=== PATIENT | male | born 1975 | race Caucasian/White ===

== ENCOUNTER 2020-02-25 15:41 | Inpatient (IN) ==
[2020-02-25] MEDS ORDERED: AZITHROMYCIN INJ 500 MG in SODIUM CHLORIDE 0.9% 250 ML IV STA (16:00)
[2020-02-25] MEDS ORDERED: methylPREDNISolone SOD SUC 125 MG/2 ML VIAL IV STA (16:00)
[2020-02-25] MEDS ORDERED: ALBUTEROL NEB SOLN 5 MG/ML 20 ML/BOTTLE CONT NEB SCH (16:00)
[2020-02-25] MEDS ORDERED: KETOROLAC 30 MG/1 ML VIAL IV STA (16:00)
[2020-02-25 16:44] LABS: Basophils % 0.2 % (0.0-0.8); Eosinophils # 0.3 10*3/uL (0.0-0.87); Eosinophils % 2.5 % (0.00-10.9); Hematocrit 42.3 VOL% (42.0-52.0); Immature Granulocytes % 0.8 %; Immature Granulocytes Absolute 0.09 #; Lymphocytes # 2.5 10*3/uL (1.4-4.0); Lymphocytes % 21.2 % (21.2-54.2); Mean Corpuscular HGB Conc 30.7 GM/DL (32-36); Mean Corpuscular Volume 83.9 FL (87-102); Monocytes % 11.1 % (1.7-12.7); Neutrophils % 64.2 % (38.7-73.9); Platelet Count 266 T/CUMM (130-400); Red Blood Count 5.04 MC/CUMM (3.8-5.5); Red Cell Distribution Width 15.6 % (9.3-17.3); White Blood Count 11.6 T/CUMM (4-12)
[2020-02-25 16:55] LABS: PT Patient Result 10.3 SECS (9.8-11.9); Partial Thromboplastin Time 28.3 SECS (23.9-33.8)
[2020-02-25 17:06] LABS: Alanine Aminotransferase 27 U/L (16-61); Albumin 3.1 G/DL (3.4-5.0); Alkaline Phosphatase 79 U/L (45-117); Aspartate Amino Transferase 14 U/L (0-37); Bilirubin,Total < 0.39 MG/DL (0.2-1.0); Blood Urea Nitrogen 9 MG/DL (7-18); Calcium 8.7 MG/DL (8.5-10.1); Estimated Glom Filtration Rate 134 ML/MIN; Glucose 148 MG/DL (74-106); Osmolality,Calculated 269.2 MOS/KG (273-304); Total Protein 7.2 G/DL (6.4-8.3); Troponin I < 0.015 NG/ML (0.00-0.045)
[2020-02-25] MEDS ORDERED: FUROSEMIDE 40 MG/4 ML VIAL IV STA (17:26)
[2020-02-25] MEDS ORDERED: LEVOFLOXACIN 750 MG TABLET PO STA (17:27)
[2020-02-25] MEDS ORDERED: MAGNESIUM SULF RIDER 4 GM in PREMIX 1 EACH IV PRN (18:00)
[2020-02-25] MEDS ORDERED: HEPARIN 5,000 UNIT/1 ML VIAL SUBCUT SCH (18:00)
[2020-02-25] MEDS ORDERED: MAGNESIUM SULF RIDER 2 GM in PREMIX 1 EACH IV PRN (18:00)
[2020-02-25] MEDS ORDERED: PROPRANOLOL 10 MG TABLET PO PRN (18:04)
[2020-02-25 18:39] LABS: ABG Oxygen Saturation 93.1 % (95-100); ABG PCO2 47.3 MM HG (35-48); ABG PH 7.378 (7.35-7.45); ABG PO2 64.9 MM HG (80-95); ABG TCO2 24.3 MMOL/L (23-27)
[2020-02-25 19:03] LABS: Apearance,Urine CLEAR (Clear); Bacteria,Urine Occasional /HPF (Few); Bilirubin,Urine Negative (Negative); Blood, Urine Negative (Negative); Glucose,Urine (UA) Negative (Negative); Hyaline Casts,Urine 7 /LPF (0-3); Ketones,Urine Negative (Negative); Mucus,Urine Occasional /LPF (Occasional); Nitrite,Urine Negative (Negative); Protein,Urine Negative; RBC,Urine 2 /HPF (0-4); Squamous Epithelial Cell,Urine Occasional /HPF (0-10); Urine Color Yellow (Yellow); Urine Specific Gravity 1.013 (1.001-1.035); Urine Urobilinogen < 2.0 EU/DL (0.2-1.0); WBC,Urine 5 /HPF (0-6)
[2020-02-25 19:09] LABS: Barbiturates Screen,Urine Negative (Negative); Benzodiazepines Screen,Urine Positive (Negative); Cannabinoid Screen,Urine Negative (Negative); Opiate Screen,Urine Negative (Negative); Phencyclidine Screen,Urine Negative (Negative)
[2020-02-25] MEDS ORDERED: TERBUTALINE 1 MG/1 ML VIAL SUBCUT PRN (19:40)
[2020-02-25] MEDS ORDERED: ROSUVASTATIN 10 MG TABLET PO SCH (21:00)
[2020-02-25] MEDS: AZTREONAM 2,000 MG in SODIUM CHLORIDE 0.9% 100 ML IV SCH (21:47)
[2020-02-25] MEDS: ALBUTEROL 2 MG TABLET PO SCH (21:47)
[2020-02-25] MEDS: BENZONATATE 100 MG CAPSULE PO SCH (21:48)
[2020-02-25] MEDS: guaiFENesin/DM ER 600-30 MG TABLET PO SCH (21:48)
[2020-02-25] MEDS: busPIRone 10 MG TABLET PO SCH (21:48)
[2020-02-25] MEDS: ENOXAPARIN 40 MG/0.4 ML SYRINGE SUBCUT SCH (21:49)
[2020-02-25] MEDS: BUDESONIDE/FORMOTEROL 160-4.5 INHALER 6 GM INH SCH (23:19)
[2020-02-26] MEDS: AZTREONAM 2,000 MG in SODIUM CHLORIDE 0.9% 100 ML IV SCH (05:13)
[2020-02-26 05:22] LABS: Basophils % 0.2 % (0.0-0.8); Hematocrit 43.2 VOL% (42.0-52.0); Hemoglobin 13.3 GM/DL (14.0-18.0); Immature Granulocytes % 1.7 %; Immature Granulocytes Absolute 0.16 #; Lymphocytes # 0.9 10*3/uL (1.4-4.0); Lymphocytes % 10.3 % (21.2-54.2); Mean Corpuscular HGB Conc 30.8 GM/DL (32-36); Mean Corpuscular Volume 84.4 FL (87-102); Mean Platelet Volume 11.2 FL (9.6-12.0); Monocytes % 3.3 % (1.7-12.7); Neutrophils % 84.5 % (38.7-73.9); Platelet Count 280 T/CUMM (130-400); Red Blood Count 5.12 MC/CUMM (3.8-5.5); Red Cell Distribution Width 15.7 % (9.3-17.3); White Blood Count 9.2 T/CUMM (4-12)
[2020-02-26 05:33] LABS: PT Patient Result 11.1 SECS (9.8-11.9)
[2020-02-26 05:55] LABS: Albumin 3.3 G/DL (3.4-5.0); Bilirubin,Total 0.5 MG/DL (0.2-1.0); Calcium 8.7 MG/DL (8.5-10.1); Ferritin 61.7 ng/ml (26-388); Osmolality,Calculated 275.4 MOS/KG (273-304); Total Protein 7.8 G/DL (6.4-8.3)
[2020-02-26 05:57] LABS: Risk Ratio 7.34; VLDL CHOLESTEROL 33.2 MG/DL
[2020-02-26 08:14] LABS: Sedimentation Rate-Westergren 47 MM/HR (0-15)
[2020-02-26] MEDS ORDERED: LEVOFLOXACIN INJ 750 MG in PREMIX 1 EACH IV SCH (09:00)
[2020-02-26] MEDS: ARIPiprazole 10 MG TABLET PO SCH (09:52)
[2020-02-26] MEDS: busPIRone 10 MG TABLET PO SCH ×2 (09:53→21:00)
[2020-02-26] MEDS: DONEPEZIL 10 MG TABLET PO SCH (09:53)
[2020-02-26] MEDS: SERTRALINE 100 MG TABLET PO SCH (09:53)
[2020-02-26] MEDS: MELOXICAM 7.5 MG TABLET PO SCH (09:53)
[2020-02-26] MEDS: ALBUTEROL 2 MG TABLET PO SCH ×4 (09:54→20:59)
[2020-02-26] MEDS: guaiFENesin/DM ER 600-30 MG TABLET PO SCH ×2 (09:54→21:00)
[2020-02-26] MEDS: ENOXAPARIN 40 MG/0.4 ML SYRINGE SUBCUT SCH ×2 (09:54→20:58)
[2020-02-26] MEDS: NICOTINE 21 MG/24 HR PATCH TRANSDERM SCH (09:54)
[2020-02-26] MEDS: BENZONATATE 100 MG CAPSULE PO SCH ×3 (09:54→20:59)
[2020-02-26] MEDS: BUDESONIDE/FORMOTEROL 160-4.5 INHALER 6 GM INH SCH ×2 (10:35→21:00)
[2020-02-26] MEDS ORDERED: ROSUVASTATIN 20 MG TABLET PO SCH (21:00)
[2020-02-26] MEDS ORDERED: IBUPROFEN 800 MG TABLET PO ONE (21:52)
[2020-02-27 05:29] LABS: Basophils % 0.1 % (0.0-0.8); Eosinophils # 0.1 10*3/uL (0.0-0.87); Eosinophils % 0.9 % (0.00-10.9); Hematocrit 43.1 VOL% (42.0-52.0); Hemoglobin 13.2 GM/DL (14.0-18.0); Immature Granulocytes % 0.8 %; Lymphocytes # 3.2 10*3/uL (1.4-4.0); Lymphocytes % 26.4 % (21.2-54.2); Mean Corpuscular HGB Conc 30.6 GM/DL (32-36); Mean Corpuscular Volume 83.4 FL (87-102); Mean Platelet Volume 10.9 FL (9.6-12.0); Monocytes % 9.1 % (1.7-12.7); Neutrophils % 62.7 % (38.7-73.9); PT Patient Result 10.5 SECS (9.8-11.9); Platelet Count 266 T/CUMM (130-400); Red Blood Count 5.17 MC/CUMM (3.8-5.5); Red Cell Distribution Width 15.8 % (9.3-17.3); White Blood Count 12.1 T/CUMM (4-12)
[2020-02-27 05:58] LABS: Bilirubin,Total 0.4 MG/DL (0.2-1.0); Calcium 8.3 MG/DL (8.5-10.1); Ferritin 49.2 ng/ml (26-388); Total Protein 6.7 G/DL (6.4-8.3)
[2020-02-27 06:43] LABS: Sedimentation Rate-Westergren 21 MM/HR (0-15)
[2020-02-27] MEDS ORDERED: FUROSEMIDE 40 MG/4 ML VIAL IV ONE (09:00)
[2020-02-27] MEDS ORDERED: LEVOFLOXACIN 750 MG TABLET PO SCH (09:00)
[2020-02-27] MEDS: SERTRALINE 100 MG TABLET PO SCH (09:02)
[2020-02-27] MEDS: ARIPiprazole 10 MG TABLET PO SCH (09:02)
[2020-02-27] MEDS: busPIRone 10 MG TABLET PO SCH (09:03)
[2020-02-27] MEDS: BENZONATATE 100 MG CAPSULE PO SCH (09:03)
[2020-02-27] MEDS: DONEPEZIL 10 MG TABLET PO SCH (09:03)
[2020-02-27] MEDS: MELOXICAM 7.5 MG TABLET PO SCH (09:03)
[2020-02-27] MEDS: guaiFENesin/DM ER 600-30 MG TABLET PO SCH (09:03)
[2020-02-27] MEDS: ALBUTEROL 2 MG TABLET PO SCH (09:03)
[2020-02-27] MEDS: ENOXAPARIN 40 MG/0.4 ML SYRINGE SUBCUT SCH (09:03)
[2020-02-27] MEDS: NICOTINE 21 MG/24 HR PATCH TRANSDERM SCH (09:04)
[2020-02-27] MEDS: BUDESONIDE/FORMOTEROL 160-4.5 INHALER 6 GM INH SCH (09:05)
[2020-02-27 11:43] VITALS: BP 125/64
== END 2020-02-27 11:53 | disposition home or self-care (01) | DRG 194 ==
LOC: EDUNIT# → EDBD → N.ED 15:41 → N.EDINP 19:36 → N.2E 20:00
PROVIDERS: ADMIT Hospitalist; ATTEND Hospitalist